=== PATIENT | female | born 1990 | race Caucasian/White ===

== ENCOUNTER 2016-07-23 11:58 | Emergency (ER) | payer MEDICAID, OTHER ==
[~2016-07-23] VITALS: Ht 162.6 cm; Wt 73.0 kg
[~2016-07-23 11:58] MED LIST: ZITHTAB PO
[2016-07-23 12:00] VITALS: BP 180/96; PULSE 85; RESP 12; TEMP 98; O2SAT 100
[2016-07-23 16:23] LABS: AUTOMATED NEUTROPHIL # 6.4 TH/MM3 (1.8-7.7); BASOPHIL # 0.1 TH/MM3 (0-0.2); BASOPHIL % 0.7 % (0.0-2.0); EOSINOPHIL # 0.2 TH/MM3 (0-0.4); EOSINOPHIL % 1.8 % (0.0-4.0); HEMATOCRIT 44.1 % (35.0-46.0); HEMO FLAGS DIFF FINAL; LYMPH % 29.6 % (9.0-44.0); MEAN CELL VOLUME 85.6 FL (80.0-100.0); MEAN CORPUSCULAR HEMOGLOBIN 29.1 PG (27.0-34.0); MONO % 6.2 % (0.0-8.0); NEUT % 61.7 % (16.0-70.0); PLATELET COUNT 239 TH/MM3 (150-450); RED BLOOD COUNT 5.15 MIL/MM3 (4.00-5.30); RED CELL DISTRIBUTION WIDTH 12.3 % (11.6-17.2); WHITE BLOOD COUNT 10.3 TH/MM3 (4.0-11.0)
[2016-07-23 16:37] LABS: APTT (PATIENT) 28.8 SEC (24.3-30.1); INTERNATIONAL NORMALIZED RATIO 0.9 RATIO; PROTHROMBIN TIME - PATIENT 10.3 SEC (9.8-11.6)
--- NOTE | 2016-07-23 16:39 | RADRPT ---
EXAM DATE/TIME: 07/23/2016 16:17 [place] COMPARISON: No previous studies available for comparison. INDICATIONS : Chest pain and shortness of breath. MEDICAL HISTORY : None. SURGICAL HISTORY : None. ENCOUNTER: Initial ACUITY: 1 day PAIN SCORE: 4/10 LOCATION: Bilateral chest FINDINGS: There is a vague focal opacity in the right cardiophrenic angle. This is likely epicardial fat, howev er we do not have prior studies for comparison. The lungs are otherwise clear. No pleural effusion is suspected. Heart size and pulmonary vascular are normal. Thoracic skeleton is intact. CONCLUSION: Focal opacity at the right cardiophrenic angle is likely benign epicardial fat. Followup to document stability would be recommended on an elective basis. Joao Pate MD on July 23, 2016 at 16:36 Board Certified Radiologist. This report was verified electronically.
[2016-07-23 16:46] LABS: ANION GAP 7 MEQ/L (5-15); BLOOD UREA NITROGEN 10 MG/DL (7-18); CHLORIDE 101 MEQ/L (98-107); GLOMERULAR FILTRATION RATE 86 ML/MIN (>89); MAGNESIUM 2.1 MG/DL (1.5-2.5); POTASSIUM 3.5 MEQ/L (3.5-5.1); SODIUM (NA) 136 MEQ/L (136-145)
[2016-07-23 16:51] LABS: CREATINE KINASE 220 U/L (26-192)
[2016-07-23 17:03] LABS: CKMB 0.5 NG/ML (0.5-3.6)
[2016-07-23 21:22] VITALS: BP 156/82; PULSE 83; RESP 16; O2SAT 99
--- NOTE | 2016-07-23 21:56 | PD ---
HPI Chief Complaint: Pain: Acute or Chronic Time Seen by Provider: 21:40 Travel History International Travel<30 days: No Contact w/Intl Traveler<30days: No Traveled to known affect area: No History of Present Illness HPI This is a 25-year-old female who has actually been in the emergency room for several hours. Protocol labs were ordered prior to arrival here in [facility]. The patient is complaining of pleuritic chest pain and shortness of breath. Symptoms started yesterday evening. She describes it as a sharp pain in the center of her chest that is reproduced with deep inspiration. She reports that it feels like she cannot take a full breath. She has never had this problem before. She has no pain with rest. She endorses a slight cough for the past month which she describes as a "tickle in the throat" when she had a sore throat at the beginning of June. She was treated at that time for pharyngitis. She's had no fevers or chills, sputum production, calf swelling, hemoptysis, recent travel, rash. No history of DVT, PE. Denies any oral contraceptive use. Denies . She is not a smoker. She has no other complaints at this time. PFSH Past Medical History Cardiovascular Problems: Yes (HEART MURMUR) Diminished Hearing: No ?: Not LMP: 2 WEEKS Social History Alcohol Use: Yes (OCC) Tobacco Use: No Substance Use: No Allergies-Medications (Allergen,Severity, Reaction): Coded Allergies: Amoxicillin (Unverified Allergy, Severe, 07/23/16) Penicillin (Verified Allergy, Severe, RASH, 07/23/16) Reported Meds & Prescriptions Reported Meds & Active Scripts Active Review of Systems Except as stated in HPI: all other systems reviewed are Neg Physical Exam Narrative GENERAL: Well-developed well-nourished female in no acute distress resting comfortably in hospital bed vital signs reviewed SKIN: Warm and dry. HEAD: Atraumatic. Normocephalic. EYES: Pupils equal and round. No scleral icterus. No injection or drainage. ENT: No nasal bleeding or discharge. Mucous membranes pink and moist. NECK: Trachea midline. No JVD. CARDIOVASCULAR: Regular rate and rhythm. No murmur appreciated. RESPIRATORY: No accessory muscle use. Clear to auscultation. Breath sounds equal bilaterally. GASTROINTESTINAL: Abdomen soft, non-tender, nondistended. Hepatic and splenic margins not palpable. MUSCULOSKELETAL: No obvious deformities. No extremity edema, negative Homans bilaterally NEUROLOGICAL: Awake and alert. No obvious cranial nerve deficits. Motor grossly within normal limits. Normal speech. Data Data Last Documented VS Vital Signs Date Time Temp Pulse Resp B/P Pulse Ox O2 Delivery O2 Flow Rate FiO2 07/23/16 21:54 16 07/23/16 21:22 83 156/82 99 07/23/16 12:00 98.0 Room Air Orders Electrocardiogram (07/23/16 15:50) Basic Metabolic Panel (Bmp) (07/23/16 15:50) Ckmb (Isoenzyme) Profile (07/23/16 15:50) Complete Blood Count With Diff (07/23/16 15:50) Magnesium (Mg) (07/23/16 15:50) Prothrombin Time / Inr (Pt) (07/23/16 15:50) Act Partial Throm Time (Ptt) (07/23/16 15:50) Troponin I (07/23/16 15:50) Chest, Single Ap (07/23/16 15:50) Ecg Monitoring (07/23/16 15:50) Bilateral Bp Monitoring (07/23/16 15:50) Iv Access Insert/Monitor (07/23/16 15:50) Oximetry (07/23/16 15:50) Oxygen Administration (07/23/16 15:50) CKMB (07/23/16 16:06) CKMB% (07/23/16 16:06) Ed Urine Pregnancytest Poc (07/23/16 21:38) D-Dimer (07/23/16 21:53) Ketorolac Inj (Toradol Inj) (07/23/16 22:00) Ibuprofen (Motrin) (07/23/16 22:15) Labs Laboratory Tests Test 07/23/16 16:06 White Blood Count 10.3 TH/MM3 Red Blood Count 5.15 MIL/MM3 Hemoglobin 15.0 GM/DL Hematocrit 44.1 % Mean Corpuscular Volume 85.6 FL Mean Corpuscular Hemoglobin 29.1 PG Mean Corpuscular Hemoglobin 34.0 % Concent Red Cell Distribution Width 12.3 % Platelet Count 239 TH/MM3 Mean Platelet Volume 9.3 FL Neutrophils (%) (Auto) 61.7 % Lymphocytes (%) (Auto) 29.6 % Monocytes (%) (Auto) 6.2 % Eosinophils (%) (Auto) 1.8 % Basophils (%) (Auto) 0.7 % Neutrophils # (Auto) 6.4 TH/MM3 Lymphocytes # (Auto) 3.0 TH/MM3 Monocytes # (Auto) 0.6 TH/MM3 Eosinophils # (Auto) 0.2 TH/MM3 Basophils # (Auto) 0.1 TH/MM3 CBC Comment DIFF FINAL Differential Comment Prothrombin Time 10.3 SEC Prothromb Time International 0.9 RATIO Ratio Activated Partial 28.8 SEC Thromboplast Time Sodium Level 136 MEQ/L Potassium Level 3.5 MEQ/L Chloride Level 101 MEQ/L Carbon Dioxide Level 28.0 MEQ/L Anion Gap 7 MEQ/L Blood Urea Nitrogen 10 MG/DL Creatinine 0.80 MG/DL Estimat Glomerular Filtration 86 ML/MIN Rate Random Glucose 110 MG/DL Calcium Level 9.3 MG/DL Magnesium Level 2.1 MG/DL Total Creatine Kinase 220 U/L Creatine Kinase MB 0.5 NG/ML Creatine Kinase MB % 0.2 % Troponin I LESS THAN 0.02 NG/ML [facility] Medical Decision Making Medical Screen Exam Complete: Yes Emergency Medical Condition: Yes Medical Record Reviewed: Yes Interpretation(s) EKG sinus rhythm heart rate 86 CBC unremarkable CMP unremarkable Total CK 220, CK-MB negative, troponin negative Differential Diagnosis Pleurisy, pulmonary embolism, pericarditis, myocarditis, pneumonia, costochondritis, anxiety, bronchitis, reactive airway disease Narrative Course This is a 25-year-old female who has had pleuritic chest pain and some dyspnea since yesterday evening. She does report that she has been quite anxious recently secondary to life stressors and she was wondering if this could be related to her symptoms. She does note that she had a slight cough secondary to a sore throat for the past several weeks but the cough is nonproductive. Physical examination is reassuring. Her lungs sound clear with no wheezing, crackles, rhonchi. Tachypneic, tachycardic, hypoxic. Abdomen is soft and nontender, no lower extremity edema. Protocol labs and imaging studies from triage have been reviewed. Chest x-ray reveals focal opacity at the right cardiophrenic angle likely benign epicardial fat. Follow-up is recommended. I don't feel that this focal opacity recommends pneumonia. Certainly the patient' s symptoms are consistent with pleurisy. I did consider pulmonary embolism as a diagnosis and initially I was going to order a d-dimer however the patient is declining a d-dimer and understands that the purposes work to test for pulmonary embolism. The patient is negative by PERC criteria making her risk for pulmonary embolism quite low. I have given the patient a copy of her chest x-ray and recommended follow-up with her primary care physician for repeat chest x-ray imaging versus outpatient CT imaging and she verbalizes understanding. She is being discharged with ibuprofen for her pleuritic pain. Procedures EKG Prior to Arrival: Yes Diagnosis Primary Impression: Pleurisy Additional Instructions: Take ibuprofen as needed for pain. Take with meals. Follow-up with a primary care physician regarding chest x-ray results likely for further outpatient imaging. Return for any new or worsening symptoms. Med/Other Pt SpecificInfo: Prescription(s) given Scripts Ibuprofen 800 Mg Kve666 Mg PO Q6HR PRN (PAIN) 10 Days Ref 0 Prov:Kelley Mann DO 07/23/16 Disposition: 01 DISCHARGE HOME Condition: Stable Carlos Mcclendon Jul 23, 2016 21:55
[2016-07-23] MEDS ORDERED: KETOROLAC TROMETHAMINE 60 MG/2 ML (IM) VIAL IM ONE (22:00)
[2016-07-23 22:05] VITALS: BP 142/71; PULSE 73; RESP 16; O2SAT 97
[2016-07-23] MEDS ORDERED: IBUP800T23 PO (22:10)
[2016-07-23] MEDS ORDERED: IBUPROFEN 800 MG TAB PO ONE (22:15)
--- NOTE | 2016-07-24 11:42 | EKG ---
Date Performed: 07/23/2016 Time Performed: 16:22:23 PTAGE: 25 years EKG: Sinus rhythm NORMAL ECG NO PREVIOUS TRACING DOCTOR: Gian Anderson Interpretating Date/Time 07/24/2016 11:41:47
== END 2016-07-23 22:40 | disposition home or self-care (01) ==
LOC: NEPB 11:58 → NED 11:58 → NEPB 22:40
DX: R09.1 Pleurisy (principal); J02.9 Acute pharyngitis, unspecified
CPT/HCPCS: 71010; 80048; 82550; 82552; 83735; 84484; 84703; 85025; 85610; 85730; 93005

== ENCOUNTER 2017-01-03 10:19 | Emergency (ER) | payer MEDICAID ==
[~2017-01-03] VITALS: Ht 162.6 cm; Wt 71.7 kg
[~2017-01-03 10:19] MED LIST changes: +IBUP800T23 PO; -ZITHTAB PO
[2017-01-03 10:30] VITALS: BP 136/80; PULSE 91; RESP 16; TEMP 98.2; O2SAT 99
--- NOTE | 2017-01-03 11:20 | PD ---
HPI . Cold Chief Complaint: Cold / Flu Symptoms Time Seen by Provider: 11:07 Travel History International Travel<30 days: No Contact w/Intl Traveler<30days: No Traveled to known affect area: No History of Present Illness HPI The patient presents with cold symptoms for about the last 5 days. She reports that she needs to get better by tomorrow for a trip to [place] [employer]. Her main symptoms have been nasal congestion and rhinorrhea. She has been taking DayQuil and NyQuil with minimal relief. No noted exacerbating factor. 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 She rates her sinus discomfort as 5/10. PFSH Past Medical History Cardiovascular Problems: Yes (HEART MURMUR) Diminished Hearing: No Immunizations Current: Yes ?: Not LMP: 12/30/16 Social History Alcohol Use: Yes (OCC) Tobacco Use: No Substance Use: No Allergies-Medications (Allergen,Severity, Reaction): Coded Allergies: Amoxicillin (Unverified Allergy, Severe, 01/03/17) Penicillin (Verified Allergy, Severe, RASH, 01/03/17) Reported Meds & Prescriptions Reported Meds & Active Scripts Active Ibuprofen 800 Mg Tab 800 Mg PO Q6HR PRN 10 Days Review of Systems Except as stated in HPI: all other systems reviewed are Neg General / Constitutional: No: Fever, Chills HENT: Positive: Rhinitis, Rhinorrhea, Congestion Respiratory: No: Shortness of Breath Gastrointestinal: No: Nausea, Vomiting Physical Exam Narrative GENERAL: Awake and alert and in no acute distress. SKIN: Warm and dry. HEAD: Atraumatic. Normocephalic. EYES: Pupils equal and round. No conjunctival injection or discharge. ENT: No nasal bleeding or discharge. Mucous membranes pink and moist. No tenderness to percussion of the sinuses. Oropharynx has no erythema, exudate or tonsillar enlargement. NECK: Trachea midline. Neck is supple with no cervical adenopathy. CARDIOVASCULAR: Regular rate and rhythm. Heart sounds are normal. RESPIRATORY: No accessory muscle use. Lungs are clear with full air movement throughout. MUSCULOSKELETAL: No obvious deformities. No edema. NEUROLOGICAL: Awake and alert. No obvious cranial nerve deficits. Motor grossly within normal limits. Normal speech. PSYCHIATRIC: Appropriate mood and affect; insight and judgment normal. Data Data Last Documented VS Vital Signs Date Time Temp Pulse Resp B/P Pulse Ox O2 Delivery O2 Flow Rate FiO2 01/03/17 10:30 98.2 91 16 136/80 99 MDM Medical Decision Making Medical Screen Exam Complete: Yes Emergency Medical Condition: Yes Differential Diagnosis Differential diagnosis includes but is not limited to influenza, upper respiratory infection, bronchitis, pneumonia Narrative Course Patient presents with signs and symptoms compatible with the common cold. She has no concerning physical exam findings. She'll be discharged with suggestions for symptomatic treatment. Diagnosis Primary Impression: Upper respiratory infection Qualified Code: J06.9 - Viral upper respiratory tract infection Patient Instructions: General Instructions, Upper Respiratory Infection (DC) Additional Instructions: I recommend the use of a Neti Pot. You may use a nasal spray such as Afrin for up to 3 days as needed for nasal congestion. You may take an eikk-lko-kfnwsrp antihistamine such as Zyrtec, Jadyn or Claritin as needed for runny secretions. You may take pseudoephedrine as needed for congestion. You will need to sign for this at the pharmacy. You may take plain Mucinex, 1200 mg twice a day as needed for thick secretions. You may take a cough syrup such as Delsym as needed for cough. Motrin as needed for fever and body aches. Throat lozenges/sprays as needed for sore throat. Warm salt water gargles for sore throat. Hot tea with lemon and honey also helps soothe a sore throat. Disposition: 01 DISCHARGE HOME Condition: Stable Claudia Yadav MD Jan 03, 2017 11:20
== END 2017-01-03 11:28 | disposition home or self-care (01) ==
LOC: PHED 10:19
DX: J06.9 Acute upper respiratory infection, unspecified (principal); Z88.0 Allergy status to penicillin
CPT/HCPCS: 99282

== ENCOUNTER 2018-07-08 00:39 | Observation (INO) ==
[2018-07-08 01:46] LABS: Bacteria,Urine Rare /hpf; Bilirubin,Urine Negative (Negative); Clarity,Urine Hazy (Clear); Color,Urine Yellow (Yellw/Straw); Glucose,Urine (UA) Negative (Negative); Leukocyte Esterase,Urine Negative (Negative); Mucus,Urine Few /lpf (Occasional); Nitrite,Urine Negative (Negative); Specific Gravity,Urine 1.024 (1.002-1.035); Squamous Epithelial Cell,Urine 12 /hpf (0-5)
[2018-07-08] MEDS ORDERED: Sod Chloride 0.9% Inj 1,000 ML IV.SIG ONE (01:47)
[2018-07-08] MEDS ORDERED: Ketorolac Inj 30 MG/ML (IVP) Vial IV.PUSH ONE ×2 (01:47→13:03)
--- NOTE | 2018-07-08 01:52 | ED ---
HPI General Chief complaint: Abdominal Pain Stated complaint: Upper ABD pain Time Seen by Provider: 07/08/18 00:47 History of Present Illness HPI narrative: Patient is a 27-year-old female presents emergency department for evaluation of epigastric pain nonradiating for the past 9 hours prior to presentation. Patient states pain gradually began worse overall but is still spasmodic and intermittent. She states she has a history of kidney stones but this different. States her period just started a few days ago. States is never had pain like this. States very sharp and gnawing in the center of her abdomen. No shortness of breath no cough no congestion no fevers. She did have one episode of nonbilious nonbloody vomiting. No diarrhea no constipation no hematochezia. She is concerned that something might be going wrong "inside of her". Related Data Home Medications Medication Instructions Recorded Confirmed No Known Home Medications 07/08/18 07/08/18 Allergies Allergy/AdvReac Type Severity Reaction Status Date / Time amoxicillin Allergy Severe Rash Verified 07/08/18 00:43 penicillin G Allergy Severe RASH Verified 07/08/18 00:43 Review of Systems ROS: all other systems reviewed are negative [facility] Medical History Medical History Patient denies medical problems (Acute) Social History Social History Substance History: No History of Abuse Second Hand Smoke Exposure: No Smoking Status: Never smoker How Often Do You Have a Drink Containing Alcohol: Monthly or less Recent Travel in [facility] within the Last 8 Weeks: No Recent Out of Country Travel within the Last 8 Weeks: No Immunization History Tetanus Immunization: >5 Years Exam Narrative Exam Narrative: GENERAL: Well-developed well-nourished, no obvious distress, SKIN: Focused skin assessment warm/dry. HEAD: Atraumatic. Normocephalic. EYES: Pupils equal and round. No scleral icterus. No injection or drainage. ENT: No nasal bleeding or discharge. Mucous membranes pink and moist. NECK: Trachea midline. No JVD. CARDIOVASCULAR: Regular rate and rhythm. No murmur appreciated. RESPIRATORY: No accessory muscle use. Clear to auscultation. Breath sounds equal bilaterally. GASTROINTESTINAL: Abdomen soft, non-tender, nondistended. Hepatic and splenic margins not palpable. No rebound no percussive tenderness, no CVA tenderness, psoas obturator signs, Tay sign. She does have some minimal tenderness in the right lower quadrant however her abdomen is fairly benign. MUSCULOSKELETAL: No obvious deformities. No clubbing. No cyanosis. No edema. NEUROLOGICAL: Awake and alert. No obvious cranial nerve deficits. Motor grossly within normal limits. Normal speech. PSYCHIATRIC: Appropriate mood and affect; insight and judgment normal. Course Initial Documented Vital Signs Temperature 98.9 F 07/08/18 00:43 Pulse Rate 107 H 07/08/18 00:43 Respiratory Rate 16 07/08/18 00:43 Blood Pressure 148/80 H 07/08/18 00:43 Pulse Oximetry 99 07/08/18 00:43 Last Documented Vital Signs Temperature 98.3 F 07/08/18 01:15 Pulse Rate 86 07/08/18 01:15 Respiratory Rate 16 07/08/18 01:15 Blood Pressure 150/81 H 07/08/18 01:15 Pulse Oximetry 99 07/08/18 01:15 Medical Decision Making MDM Narrative Medical decision making narrative: Patient room in the emerge department, Toradol given the patient's pain is improving. Platelets count of 15,000 with neutrophil predominance the patient was taken to CAT scan. CT scan read shows concerns for early appendicitis. Patient was reexamined and now she is becoming more tender in the right lower quadrant. This could represent migratory pain as the patient initially had some tenderness in the epigastric area. Patient has not been febrile here in the emergency department but the patient still discussed with Dr. Serge Soni given the tenderness in the right lower quadrant a white count of 15,000 think she would benefit for observation status from him, the patient was started on antibiotics Rocephin and Flagyl she is allergic to penicillin. The results were discussed with her and she is agreeable. Medical Screen Exam Complete: Yes Emergency Medical Condition: Yes Lab Data Result diagrams: 07/08/18 02:25 07/08/18 02:25 POC Results POC Urine Results Negative Lab Results 07/08/18 07/08/18 07/08/18 Range/Units 01:25 02:25 02:25 WBC 14.9 H (4.0-11.0) th/mm3 RBC 4.77 (4.00-5.30) mil/mm3 Hgb 14.5 (11.6-15.3) gm/dL Hct 41.2 (35.0-46.0) % MCV 86.2 (80.0-100.0) fL MCH 30.4 (27.0-34.0) pg MCHC 35.2 (32.0-36.0) % RDW 12.5 (11.6-17.2) % Plt Count 204 (150-450) th/mm3 MPV 9.7 (7.0-11.0) fL Neut % (Auto) 85.4 H (16.0-70.0) % Lymph % (Auto) 9.9 (9.0-44.0) % [place] % (Auto) 4.2 (0.0-8.0) % Eos % (Auto) 0.3 (0.0-4.0) % Baso % (Auto) 0.2 (0.0-2.0) % Neut # (Auto) 12.7 H (1.8-7.7) th/mm3 Lymph # (Auto) 1.5 (1.0-4.8) th/mm3 [place] # (Auto) 0.6 (0.0-0.9) th/mm3 Eos # (Auto) 0.0 (0.0-0.4) th/mm3 Baso # (Auto) 0.0 (0.0-0.2) th/mm3 WBC Differential . Differential Comment Auto diff final Sodium 138 (136-145) meq/L Potassium 3.7 (3.5-5.1) meq/L Chloride 102 (98-107) meq/L Carbon Dioxide 28.7 (21.0-32.0) meq/L Anion Gap 7 (5-15) meq/L BUN 11 (7-18) mg/dL Creatinine 0.80 (0.50-1.00) mg/dL Estimated GFR 85 L (>89) mL/min Random Glucose 125 H (74-106) mg/dL Calcium 8.9 (8.5-10.1) mg/dL Magnesium 2.3 (1.5-2.5) mg/dL Total Bilirubin 0.4 (0.2-1.0) mg/dL AST 17 (15-37) U/L ALT 22 (10-53) U/L Alkaline Phosphatase 98 (45-117) U/L Total Protein 8.2 (6.4-8.2) g/dL Albumin 4.2 (3.4-5.0) g/dL Lipase 104 (73-393) U/L Urine Color Yellow (Yellw/Straw) Urine Clarity Hazy H (Clear) Urine pH 7.0 (5.0-8.5) Ur Specific [place] 1.024 (1.002-1.035) Urine Protein 30 H (Neg-Trace) mg/dL Urine Glucose (UA) Negative (Negative) mg/dL Urine Ketones Negative (Negative) mg/dL Urine Occult Blood Moderate H (Negative) Urine Nitrate Negative (Negative) Urine Bilirubin Negative (Negative) Urine Urobilinogen Less than 2 (Less than 2) mg/dL Ur Leukocyte Esterase Negative (Negative) Urine RBC 68 H (0-3) /hpf Urine WBC 5 (0-5) /hpf Ur Squamous Epith Cells 12 (0-5) /hpf Urine Bacteria Rare H (None) /hpf Urine Mucus Few H (Occasional) /lpf Micro UA Comment Culture not ind Ur Microscopic Review Not Reportable Urine Culture Comments Culture not ind Imaging Data Radiologist's impression: Abdomen/Pelvis CT 07/08/18 02:57 CONCLUSION: 1. Prominence of the appendix without significant inflammatory changes. This could be seen with early appendicitis in the right clinical setting. 2. Small amount of pelvic free fluid. Discharge Plan Discharge Disposition Patient Disposition: ED Admit(ED Internal Use Only) Discharge Condition Condition: Stable Discharge Order Discharge Orders: ED Use Only Admit Order (Routine); Ordered 07/08/18 Ordered By: Kiet Ann Discharge Details Diagnosis: Abdominal pain Physicians Team ED Provider: Kiet Ann Primary Care Provider: Primary Care Preethi Jha Attending Provider: Serge Soni Discharge Interventions Interventions: Vital Signs Last Done: 07/08/18 01:15 Status ED Status: Admitted Observation Patient
[2018-07-08 02:48] LABS: Baso % (Auto) 0.2 % (0.0-2.0); Eos % (Auto) 0.3 % (0.0-4.0); Hematocrit 41.2 % (35.0-46.0); Hemoglobin 14.5 gm/dL (11.6-15.3); Lymph # (Auto) 1.5 th/mm3 (1.0-4.8); Lymph % (Auto) 9.9 % (9.0-44.0); Mean Corpuscular HGB Conc 35.2 % (32.0-36.0); Mean Corpuscular Hemoglobin 30.4 pg (27.0-34.0); Mean Corpuscular Volume 86.2 fL (80.0-100.0); Mean Platelet Volume 9.7 fL (7.0-11.0); Mono # (Auto) 0.6 th/mm3 (0.0-0.9); Mono % (Auto) 4.2 % (0.0-8.0); Neut # (Auto) 12.7 th/mm3 (1.8-7.7); Neut % (Auto) 85.4 % (16.0-70.0); Platelet Count 204 th/mm3 (150-450); Red Blood Count 4.77 mil/mm3 (4.00-5.30); Red Cell Distribution Width 12.5 % (11.6-17.2); White Blood Count 14.9 th/mm3 (4.0-11.0)
[2018-07-08 02:53] LABS: Alanine Aminotransferase 22 U/L (10-53); Albumin 4.2 g/dL (3.4-5.0); Anion Gap 7 meq/L (5-15); Aspartate Aminotransferase 17 U/L (15-37); Blood Urea Nitrogen 11 mg/dL (7-18); Calcium 8.9 mg/dL (8.5-10.1); Carbon Dioxide 28.7 meq/L (21.0-32.0); Chloride 102 meq/L (98-107); Glomerular Filtration Rate 85 mL/min (>89); Glucose,Random 125 mg/dL (74-106); Lipase 104 U/L (73-393); Magnesium 2.3 mg/dL (1.5-2.5); Potassium 3.7 meq/L (3.5-5.1); Sodium 138 meq/L (136-145)
[2018-07-08 02:56] LABS: Alkaline Phosphatase 98 U/L (45-117); Total Protein 8.2 g/dL (6.4-8.2)
--- NOTE | 2018-07-08 03:56 | CT ---
EXAM DATE: 07/08/2018 3:26 AM EST AGE/SEX: 27 years / Female INDICATIONS: Upper abdomen pain. CLINICAL DATA: This is the patient's initial encounter. Patient reports that signs and symptoms have been present for 1 day and indicates a pain score of 10/10. MEDICAL/SURGICAL HISTORY: None. None. ORAL CONTRAST: No oral contrast ingested. RADIATION DOSE: 7.76 CTDI (mGy) COMPARISON: No prior exams available for comparison. TECHNIQUE: Multiple contiguous axial images were obtained through the abdomen and pelvis following b olus infusion of 95 ml Omnipaque 350 (iohexol) nonionic water-soluble contrast as a single exam dos e. No oral contrast ingested. Using automated exposure control and adjustment of the mA and/or kV ac cording to patient size, radiation dose was kept as low as reasonably achievable to obtain optimal di agnostic quality images. DICOM format image data is available electronically for review and comparis on. FINDINGS: Lower Lungs: The visualized lower lungs are clear. Liver: The liver has a homogeneous density without space-occupying lesion. There is no dilation of th e biliary tree. Spleen: Homogeneous density without enlargement. Pancreas: Unremarkable without mass or calcification. Kidneys: Normal in size and shape. No evidence of mass or hydronephrosis. Adrenal Glands: Unremarkable. Aorta: The aorta and proximal iliac vessels are grossly unremarkable without aneurysmal dilation. Bowel/Mesentery: The bowel loops are grossly unremarkable. The cecum and sigmoid colon have a normal configuration. The appendix is prominent measuring 12 mm in thickness. Abdominal Wall: Intact. Retroperitoneum: No evidence of adenopathy in the retrocrural, para-aortic, or deep pelvic regions. Bladder: Contours are smooth. Reproductive Organs: No abnormal masses or calcifications seen. Small amount of pelvic free fluid Inguinal: The inguinal region is unremarkable without evidence of adenopathy. Bony Structures: Scoliosis. CONCLUSION: 1. Prominence of the appendix without significant inflammatory changes. This could be seen with nitin y appendicitis in the right clinical setting. 2. Small amount of pelvic free fluid. Electronically signed by: Gonzalez Solis MD Board Certified Radiologist 07/08/2018 3:55 AM EST
[2018-07-08] MEDS ORDERED: Sod Chloride 0.9% Inj 1,000 ML IV.CONT SCH (04:30)
[2018-07-08] MEDS ORDERED: Morphine Inj 4 MG/ML Vial IV.PUSH PRN (08:44)
--- NOTE | 2018-07-08 08:47 | P.HPGS ---
History of Present Illness Service: General Surgery Primary Care Physician: No Primary Care Physician Chief Complaint: Abdominal pain History of Present Illness: This is a 27 year old female with a past medical history of kidney stones who presented to the ED with complaints of abdominal pain for about 10 hours prior to presentation. She had one episode of emesis in the ED. She had not felt well all day and thought she had the flu as she has several school aged foster children who live with her. She does have an elevated WBC of 14,900. Her other labs are unremarkable. A CT abdomen/pelvis was obtained which is suspicious for early appendicitis. A General Surgery admission has been requested. - Diagnosis (1) Acute appendicitis Review of Systems All other systems reviewed negative except as stated in HPI PMFSH - History History Provided By: Patient - Medical History Medical History: Medical History (Last Updated 07/08/18 @ 09:55 by EDILSON Grider) Kidney stones - Surgical History Surgical History: Surgical History (Last Updated 07/08/18 @ 09:56 by EDILSON Grider) No history of previous surgery - Tobacco History Second Hand Smoke Exposure: No Smoking Status: Never smoker - Alcohol History How Often Do You Have a Drink Containing Alcohol: Monthly or less - Substance Use History Substance History: No History of Abuse - Travel History Recent Travel in the [place] Within the Last 8 Weeks: No Recent Travel Out of the Country Within the Last 8 Weeks: Yes - Immunization History Tetanus Immunization: >5 Years Medications and Allergies Allergies Allergy/AdvReac Type Severity Reaction Status Date / Time amoxicillin Allergy Severe Rash Verified 07/08/18 00:43 penicillin G Allergy Severe RASH Verified 07/08/18 00:43 Home Medications Medication Instructions Recorded Confirmed Type No Known Home Medications 07/08/18 07/08/18 History Active Medications: Active Medications Sodium Chloride (Ns Inj) 1,000 mls @ 100 mls/hr IV.CONT .Q10H CANDY Last Admin: 07/08/18 05:22 Dose: 100 mls/hr Sodium Chloride (Ns Flush) 2 ml IV.FLUSH PRN PRN PRN Reason: FLUSH AFTER USING IV ACCESS Exam Vital signs: Vital Signs 07/08/18 00:43 07/08/18 01:15 07/08/18 07:20 Temperature 98.9 F 98.3 F Pulse Rate 107 H 86 79 Respiratory Rate 16 16 17 Blood Pressure 148/80 H 150/81 H 125/69 Pulse Oximetry 99 99 99 07/08/18 07:58 Temperature 98.7 F Pulse Rate 99 H Respiratory Rate 16 Blood Pressure 124/65 Pulse Oximetry 100 Intake & Output 07/07/18 07/08/18 07/08/18 18:59 06:59 18:59 Intake Total 1100 / 1100 100 / 100 Balance 1100 / 1100 100 / 100 Weight 65.771 kg 71 kg Intake: IV 1100 / 1100 100 / 100 NS Inj 1,000 ML @ Wide Open IV. 1000 / 1000 SIG BOLUS ONE Rx#:[id number] Rocephin Inj 2,000 MG In NS Inj 100 / 100 100 ML @ 200 mls/hr IV.SIG ONCE ONE Rx#:[id number] Flagyl 500 MG Inj 100 ML @ 100 100 / 100 mls/hr IV.SIG ONCE ONE Rx#: [id number] Other: Weight On Admission 70.76 kg Narrative: GENERAL: 27 year old female resting in bed in no acute distress. SKIN: Warm and dry. She has several tattoos. HEAD: Atraumatic. Normocephalic. EYES: Pupils equal and round. No scleral icterus. No injection or drainage. ENT: No nasal bleeding or discharge. Mucous membranes pink and moist. NECK: Trachea midline. CARDIOVASCULAR: Regular rate and rhythm. RESPIRATORY: No accessory muscle use. Clear to auscultation. Breath sounds equal bilaterally. GASTROINTESTINAL: Abdomen soft, nondistended. RIGHT lower quadrant pain and guarding with palpation. No visible scars or hernias. Several tattoos. MUSCULOSKELETAL: Extremities without clubbing, cyanosis, or edema. No obvious deformities. NEUROLOGICAL: Awake and alert. No obvious cranial nerve deficits. Motor grossly within normal limits. Five out of 5 muscle strength in the arms and legs. Normal speech. PSYCHIATRIC: Appropriate mood and affect; insight and judgment normal. Results - Labs 07/08/18 02:25 07/08/18 02:25 Laboratory Results - last 24 hr 07/08/18 07/08/18 07/08/18 01:25 02:25 02:25 WBC 14.9 H RBC 4.77 Hgb 14.5 Hct 41.2 MCV 86.2 MCH 30.4 MCHC 35.2 RDW 12.5 Plt Count 204 MPV 9.7 Neut % (Auto) 85.4 H Lymph % (Auto) 9.9 [place] % (Auto) 4.2 Eos % (Auto) 0.3 Baso % (Auto) 0.2 Neut # (Auto) 12.7 H Lymph # (Auto) 1.5 [place] # (Auto) 0.6 Eos # (Auto) 0.0 Baso # (Auto) 0.0 WBC Differential . Differential Comment Auto diff final Sodium 138 Potassium 3.7 Chloride 102 Carbon Dioxide 28.7 Anion Gap 7 BUN 11 Creatinine 0.80 Estimated GFR 85 L Random Glucose 125 H Calcium 8.9 Magnesium 2.3 Total Bilirubin 0.4 AST 17 ALT 22 Alkaline Phosphatase 98 Total Protein 8.2 Albumin 4.2 Lipase 104 Urine Color Yellow Urine Clarity Hazy H Urine pH 7.0 Ur Specific [place] 1.024 Urine Protein 30 H Urine Glucose (UA) Negative Urine Ketones Negative Urine Occult Blood Moderate H Urine Nitrate Negative Urine Bilirubin Negative Urine Urobilinogen Less than 2 Ur Leukocyte Esterase Negative Urine RBC 68 H Urine WBC 5 Ur Squamous Epith Cells 12 Urine Bacteria Rare H Urine Mucus Few H Micro UA Comment Culture not ind Ur Microscopic Review Not Reportable Urine Culture Comments Culture not ind - Imaging Imaging: ITS Impressions Abdomen/Pelvis CT 07/08/18 02:57 CONCLUSION: 1. Prominence of the appendix without significant inflammatory changes. This could be seen with early appendicitis in the right clinical setting. 2. Small amount of pelvic free fluid. CT scan - abdomen: image reviewed Caprini VTE Risk Assessment Caprini VTE Risk Assessment: No/Low Risk (score <= 1) VTE Pharmacological Exception Reason: Documented (Going to [place] ) Caprini Risk Assessment Model: Point Value = 1 Point Value = 2 Point Value = 3 Point Value = 5 Age 41-60 Minor surgery BMI > 25 kg/m2 Swollen legs Varicose veins or History of unexplained or recurrent spontaneous Oral contraceptives or hormone replacement Sepsis (< 1 month) Serious lung disease, including pneumonia (< 1 month) Abnormal pulmonary function Acute myocardial infarction Congestive heart failure (< 1 month) History of inflammatory bowel disease Medical patient at bed rest Age 61-74 Arthroscopic surgery Major open surgery (> 45 min) Laparoscopic surgery (> 45 min) Malignancy Confined to bed (> 72 hours) Immobilizing plaster cast Central venous access Age >= 75 History of VTE Family history of VTE Factor V Leiden Prothrombin [id number] Lupus anticoagulant Anticardiolipin antibodies Elevated serum homocysteine Heparin-induced thrombocytopenia Other congenital or acquired thrombophilia Stroke (< 1 month) Elective arthroplasty Hip, pelvis, or leg fracture Acute spinal cord injury (< 1 month) Prophylaxis Regimen: Total Risk Factor Score Risk Level Prophylaxis Regimen 0-1 Low Early ambulation 2 Moderate Order ONE of the following: *Sequential Compression Device (SCD) *Heparin 5000 units SQ BID 3-4 Higher Order ONE of the following medications: *Heparin 5000 units SQ TID *Enoxaparin/Lovenox 40 mg SQ daily (WT < 150 kg, CrCl > 30 mL/min) *Enoxaparin/Lovenox 30 mg SQ daily (WT < 150 kg, CrCl > 10-29 mL/min) *Enoxaparin/Lovenox 30 mg SQ BID (WT < 150 kg, CrCl > 30 mL/min) AND/OR *Sequential Compression Device (SCD) 5 or more Highest Order ONE of the following medications: *Heparin 5000 units SQ TID (Preferred with Epidurals) *Enoxaparin/Lovenox 40 mg SQ daily (WT < 150 kg, CrCl > 30 mL/min) *Enoxaparin/Lovenox 30 mg SQ daily (WT < 150 kg, CrCl > 10-29 mL/min) *Enoxaparin/Lovenox 30 mg SQ BID (WT < 150 kg, CrCl > 30 mL/min) AND *Sequential Compression Device (SCD) Assessment and Plan - Assessment (1) Acute appendicitis Code(s): K35.80 - Unspecified acute appendicitis Status: Acute Plan: 27 year old female with abdominal pain; CT and exam c/w appendicitis -Discussed option of observation vs surgery--- Patient has elected for surgical intervention -Will plan for laparoscopic appendectomy; possible open today with Dr. Wilson -Obtain consents -NPO -IVF -Continue antibiotics -PRN Morphine available -PRN Zofran available -Procedure explain in detail-- all questions answered - Plan Discussed Condition With: Dr. Wilson Ms Lebron, her mother, and patient's fiance who is a Registered Nurse - Attending Attestation I certify and attest that I personally saw and examined the patient. DEBEADER documented our visit. Acute appendicitis by exam, labs, and imaging. Recommend immediate appendectomy. Pt agrees. VICTORIA WILSON MD FACS H&P: Quality - VTE Deep Vein Thrombosis/Pulmonary Embolism Present on Admission: No
[2018-07-08] MEDS ORDERED: Levofloxacin 500 mg Premix Inj 500 MG/100 ML PIGGYBACK IV.SIG SCH (10:00)
[2018-07-08] MEDS ORDERED: Pantoprazole Inj 40 MG Vial IV.PUSH SCH (10:00)
[2018-07-08] MEDS ORDERED: Morphine Sulfate Inj 2 MG/ML Vial ONE (10:56)
[2018-07-08] MEDS ORDERED: Morphine Sulfate Inj 2 MG/ML Vial IV.PUSH ONE (11:00)
[2018-07-08] MEDS ORDERED: Famotidine PF Inj 20 MG/2 ML Vial ONE (11:28)
[2018-07-08] MEDS ORDERED: fentaNYL Citrate Inj 100 MCG/2 ML Ampul ONE ×2 (11:28→14:34)
[2018-07-08] MEDS ORDERED: Ketamine Inj 50 MG/5 ML Syringe IV.PUSH ONE (11:29)
[2018-07-08] MEDS ORDERED: Bupivacaine/Epinephrine Inj 0.25% 50 ML Vial ONE (11:40)
[2018-07-08] MEDS ORDERED: Lidocaine PF 1% Inj 5 ML Syringe OTHER ONE (13:03)
[2018-07-08 14:49] VITALS: RESP 18
[2018-07-08] MEDS ORDERED: *morphine SULFATE 4 MG/ML PERIprocedure ONLY ONE (15:40)
[2018-07-08 16:38] VITALS: PULSE 86; O2SAT 99
[2018-07-08 17:02] VITALS: BP 115/73; TEMP 98.8
--- NOTE | 2018-07-28 09:59 | MP ---
cc: Serge Soni MD DATE OF OPERATION: 07/08/2018 PREOPERATIVE DIAGNOSIS: Acute appendicitis. POSTOPERATIVE DIAGNOSIS: Acute appendicitis. PROCEDURE PERFORMED: Laparoscopic appendectomy. SURGEON: Serge Soni MD ANESTHESIA: General endotracheal. COMPLICATIONS: None. INDICATIONS FOR PROCEDURE: Ms. Lebron is a very pleasant 27-year-old female who presented to the emergency department with a 1-day history of right lower quadrant abdominal pain. She was seen and evaluated and found to have enlarged appendix on imaging. She was offered immediate appendectomy. Risks and benefits of appendectomy were discussed with her, and she was agreeable. DETAILS OF PROCEDURE: The patient was identified, brought to the operating room, placed supine on the operating table. After adequate general endotracheal anesthesia was achieved, the abdomen was prepped and draped in standard surgical fashion. Supraumbilical space was anesthetized with 0.25% Marcaine. Supraumbilical incision was made. Dissection was carried down through subcutaneous tissue to midline fascia. Midline fascia was then incised sharply. Finger was then placed in the peritoneal cavity without difficulty. Blunt balloon trocar was inserted, and the abdomen was insufflated to 15 mmHg using CO2 gas. Next, two 5-mm trocars were placed in the lower midline under direct vision after anesthetizing the skin and subcutaneous tissue with 0.25% Marcaine. Attention was directed to the right lower quadrant where an inflamed appendix was identified. The appendix was grasped and elevated cephalad. Appendiceal mesentery was then taken down with the Harmonic scalpel to the level of the cecal base. Once the cecal base was achieved, two 2-0 PDS Endoloops were placed on the appendix at the junction of the cecum. Distal appendix was then transected with the Harmonic scalpel and placed into an Endopouch bag. The appendix was brought out through the supraumbilical port, inspected, and sent to pathology for analysis. Next, the abdominal cavity was rinsed out with 1 L of warm saline solution. Cecal stump was carefully inspected. Endoloops were tested and found to be intact without any problems. The remainder of the abdominal cavity appeared unremarkable. All irrigant was removed from the abdominal cavity. The cecum was returned to its anatomic position in the right lower quadrant and covered over with omentum. All ports were removed under direct vision. Midline fascia was repaired with 0 Vicryl in a [id number] fashion. Skin was closed with 4-0 Vicryl. The patient tolerated the procedure well and was awakened and brought to the recovery room in stable condition. MD JONNIE Dean/branden , 09:42 AM , 09:49 AM
== END 2018-07-08 17:32 | disposition home or self-care (01) ==
LOC: NEDA 00:39 → NEPE 00:39 → NEDA 07:33 → NEPFCDU 07:37 → N07 11:00
PROVIDERS: ADMIT Surgery Trauma Surgery; ATTEND Surgery Trauma Surgery
PROC: LAPAPPY (ICD-10-PCS; 2018-07-08 13:03)
DX: K35.33 Acute appendicitis with perforation, localized peritonitis, and gangrene, with abscess; Z87.442 Personal history of urinary calculi; Z88.0 Allergy status to penicillin; R10.13 Epigastric pain
CPT/HCPCS: 74177; 80053; 81001; 83690; 83735; 84703; 85025; 88304; 90761; 90775; 96361; 96365; 96366; 96375; 99285; C9113; G0378; J0696; J1100; J1885; J1956; J2250; J2270; J2405; J2704; J3010; J7030; J7120; J8501; Q9967